=== PATIENT | female | born 1960 | race Two or more races ===

== ENCOUNTER 2023-07-06 05:20 | Day surgery (SDC) | payer OTHER ==
[2023-07-06] MEDS ORDERED: CEFAZOLIN SODIUM 1,000 MG VIAL ONE (10:18)
[2023-07-06] MEDS ORDERED: GENTAMICIN SULFATE 40 MG/ML VIAL ONE (10:18)
[2023-07-06] MEDS ORDERED: TRAM1TAB98 PO (11:05)
[2023-07-06] MEDS ORDERED: MACROBID 100 M100 MG PO (11:05)
[2023-07-06] MEDS ORDERED: CEFAZOLIN SODIUM 1,000 MG VIAL IV ONE ×2 (15:30)
[2023-07-06] MEDS ORDERED: GENTAMICIN SULFATE 40 MG/ML VIAL IR ONE (15:30)
== END 2023-07-06 15:20 | disposition home or self-care (01) ==
LOC: CIR.AMB 05:20
PROVIDERS: ATTEND Obstetrics & Gynecology Gynecology
DX: N81.11 Cystocele, midline (principal); N81.5 Vaginal enterocele